=== PATIENT | female | born 2000 | race American Indian/Alaskan Native ===

== ENCOUNTER 2018-06-15 18:51 | Emergency (ER) | payer SELFPAY ==
[2018-06-15 18:59] VITALS: BP 126/81
== END 2018-06-15 21:54 | disposition left against medical advice (07) ==
LOC: ED 18:51
DX: M25.561 Pain in right knee (principal); Z90.89 Acquired absence of other organs; Z53.21 Procedure and treatment not carried out due to patient leaving prior to being seen by health care provider